=== PATIENT | female | born 1950 | race Caucasian/White ===

== ENCOUNTER 2019-11-21 12:46 | Emergency (ER) | payer MEDICARE, OTHER ==
[2019-11-21 13:32] LABS: #Basophils 0.1 thou/uL (0.0-0.2); #Eosinphils 0.1 thou/uL (0.0-0.7); #Lymphocytes 2.1 thou/uL (1.20-3.40); #Monocytes 0.4 thou/uL (0.11-0.59); #Neutrophils 6.4 thou/uL (1.40-6.50); %Basophils 1.3 % (0.0-1.0); %Lymphocytes 23.4 % (21.0-51.0); %Monocytes 4.5 % (0.0-10.0); %Neutrophils 69.9 % (42.0-75.0); Mean Corpuscular HGB CONC 32.5 g/dL (32.0-36.0); Mean Corpuscular Hemoglobin 29.5 pg (27.0-31.0); Mean Corpuscular Volume 90.6 fL (78.0-98.0); Mean Platelet Volume 9.8 fL (7.4-10.4); Platelet Count 150 thou/uL (130-400); RBC Distribution Width 11.8 % (11.5-14.5); Red Blood Cell (RBC) Count 4.77 mill/uL (4.20-5.40); White Blood Cell (WBC) Count 9.2 thou/uL (4.8-10.8)
[2019-11-21] MEDS ORDERED: methylPREDNISolone Sod Succ/PF 125 MG/2 ML VIAL ONE (13:35)
[2019-11-21] MEDS ORDERED: Ventolin HFA Inhaler 60 PUFF INHALER ONE (13:35)
[2019-11-21 13:41] LABS: ALT (SGPT) 21 U/L (8-55); AST (SGOT) 24 U/L (5-34); Albumin 4.4 g/dL (3.4-4.8); Alkaline Phosphatase 90 U/L (40-110); Anion Gap 19 mmol/L (10-20); BUN (Urea Nitrogen) 7 mg/dL (9.8-20.1); Bilirubin, Total 0.5 mg/dL (0.2-1.2); Calc. Creatinine Clearance 0 mL/min (70-130); Calcium 10.1 mg/dL (7.8-10.44); Carbon Dioxide 17 mmol/L (23-31); Chloride 105 mmol/L (98-107); Estimated GFR-MDRD 65; Globulin 3.6 g/dL (2.4-3.5); Glucose 134 mg/dL (80-115); Potassium 4.1 mmol/L (3.5-5.1); Sodium 137 mmol/L (136-145)
--- NOTE | 2019-11-21 13:51 | RAD ---
EXAM: Single view of the chest HISTORY: Chest pain COMPARISON: 02/03/2014 FINDINGS: Single view of the chest shows a normal sized cardiomediastinal silhouette. Atheroscleroti c calcifications are seen in the aorta. There is a stable nodule projecting over the right upper lobe. The bones are unremarkable IMPRESSION: No evidence of acute cardiopulmonary disease
== END 2019-11-21 15:25 | disposition home or self-care (01) ==
LOC: NAV ERS 12:46
DX: J20.9 Acute bronchitis, unspecified (principal); F41.9 Anxiety disorder, unspecified; I10 Essential (primary) hypertension; F43.10 Post-traumatic stress disorder, unspecified; F17.210 Nicotine dependence, cigarettes, uncomplicated; Z79.899 Other long term (current) drug therapy
CPT/HCPCS: 71045; 80053; 83605; 84484; 85025; 93005; 96374; J2930

== ENCOUNTER 2019-11-26 06:30 | Emergency (ER) | payer MEDICARE, OTHER ==
[2019-11-26 06:52] LABS: #Basophils 0.2 thou/uL (0.0-0.2); #Eosinphils 0.1 thou/uL (0.0-0.7); #Monocytes 0.6 thou/uL (0.11-0.59); #Neutrophils 6.9 thou/uL (1.40-6.50); %Basophils 1.5 % (0.0-1.0); %Eosinophils 0.9 % (0.0-10.0); %Lymphocytes 28.2 % (21.0-51.0); %Monocytes 5.5 % (0.0-10.0); %Neutrophils 63.9 % (42.0-75.0); Hemoglobin 13.6 g/dL (12.0-16.0); Mean Corpuscular HGB CONC 32.7 g/dL (32.0-36.0); Mean Corpuscular Hemoglobin 29.1 pg (27.0-31.0); Mean Corpuscular Volume 88.8 fL (78.0-98.0); Mean Platelet Volume 10.9 fL (7.4-10.4); Platelet Count 196 thou/uL (130-400); RBC Distribution Width 11.3 % (11.5-14.5); Red Blood Cell (RBC) Count 4.67 mill/uL (4.20-5.40); White Blood Cell (WBC) Count 10.8 thou/uL (4.8-10.8)
[2019-11-26 07:08] LABS: ALT (SGPT) 16 U/L (8-55); AST (SGOT) 24 U/L (5-34); Albumin 4.1 g/dL (3.4-4.8); Alkaline Phosphatase 72 U/L (40-110); Anion Gap 14 mmol/L (10-20); BUN (Urea Nitrogen) 7 mg/dL (9.8-20.1); Bilirubin, Total 0.5 mg/dL (0.2-1.2); CK (CPK) 151 U/L (29-168); Calc. Creatinine Clearance 0 mL/min (70-130); Calcium 9.4 mg/dL (7.8-10.44); Carbon Dioxide 23 mmol/L (23-31); Chloride 103 mmol/L (98-107); Estimated GFR-MDRD 61; Globulin 3.1 g/dL (2.4-3.5); Glucose 126 mg/dL (80-115); Lipase 12 U/L (8-78); Potassium 3.4 mmol/L (3.5-5.1); Protein, Total 7.2 g/dL (6.0-8.3); Sodium 137 mmol/L (136-145)
--- NOTE | 2019-11-26 07:29 | RAD ---
Chest one view HISTORY: Dyspnea. Chest pain. FINDINGS: Cardiac silhouette and pulmonary vasculature are unremarkable. Mediastinum is midline with aortic calcification. Well-circumscribed nodule in the right upper lobe is again demonstrated, not significantly changed on exams dating back to a PET from 2011. No confluent airspace consolidation or evidence of pneumothorax. There are degenerative changes of th e shoulders. quality assurance intern leads overlie the chest. IMPRESSION : Chronic-type findings are stable. No active cardiopulmonary abnormalities are demonstrated.
== END 2019-11-26 08:00 | disposition home or self-care (01) ==
LOC: NAV ERS 06:30
DX: J44.9 Chronic obstructive pulmonary disease, unspecified (principal); R07.89 Other chest pain; I10 Essential (primary) hypertension; F43.10 Post-traumatic stress disorder, unspecified; F17.210 Nicotine dependence, cigarettes, uncomplicated; Z79.899 Other long term (current) drug therapy
CPT/HCPCS: 71045; 80053; 82550; 83690; 84484; 85025; 93005

== ENCOUNTER 2021-07-01 17:10 | Emergency (ER) | payer MEDICARE, MEDICAID | END 2021-07-01 21:14 | disposition short-term general hospital (02) | LOC: NAV ERS 17:10 | DX: E87.6 Hypokalemia (principal); E86.0 Dehydration; R19.7 Diarrhea, unspecified; I10 Essential (primary) hypertension; F17.210 Nicotine dependence, cigarettes, uncomplicated; Z20.822 Contact with and (suspected) exposure to COVID-19; Z85.42 Personal history of malignant neoplasm of other parts of uterus; Z85.038 Personal history of other malignant neoplasm of large intestine; Z79.899 Other long term (current) drug therapy | CPT/HCPCS: 71045; 80053; 81003; 81015; 83605; 83880; 85025; 93005; 96365; 96366; J3480; J7050; U0002 ==

== ENCOUNTER 2023-04-21 16:28 | Emergency (ER) | payer OTHER ==
[2023-04-21] MEDS ORDERED: fentaNYL 50 mcg/mL 1 mL Vial ONE ×2 (16:54→20:33)
[2023-04-21 16:57] LABS: #Basophils 0.1 thou/uL (0.0-0.2); #Eosinphils 0.1 thou/uL (0.0-0.7); #Lymphocytes 2.2 thou/uL (1.20-3.40); #Monocytes 0.7 thou/uL (0.11-0.59); #Neutrophils 6.8 thou/uL (1.40-6.50); %Basophils 0.8 % (0.0-1.0); %Lymphocytes 22.3 % (21.0-51.0); %Monocytes 6.7 % (0.0-10.0); %Neutrophils 69.2 % (42.0-75.0); Hematocrit 41.5 % (36.0-47.0); Hemoglobin 13.7 g/dL (12.0-16.0); Mean Corpuscular Hemoglobin 31.2 pg (27.0-31.0); Mean Corpuscular Volume 94.4 fl (78.0-98.0); Mean Platelet Volume 9.4 fL (7.4-10.4); Platelet Count 167 10x3/uL (130-400); RBC Distribution Width 11.5 % (11.5-14.5); White Blood Cell (WBC) Count 9.7 10x3/uL (4.8-10.8)
[2023-04-21 17:06] LABS: Prothrombin Time 13.9 sec (12.0-14.7)
[2023-04-21 17:07] LABS: PTT 26.8 sec (22.9-36.1)
[2023-04-21 17:14] LABS: ALT (SGPT) 10 U/L (8-55); AST (SGOT) 15 U/L (5-34); Albumin 4.1 g/dL (3.4-4.8); Alkaline Phosphatase 69 U/L (40-110); Anion Gap 12 mmol/L (10-20); BUN (Urea Nitrogen) 10 mg/dL (9.8-20.1); Bilirubin, Total 0.4 mg/dL (0.2-1.2); Calc. Creatinine Clearance 0 mL/min (70-130); Calcium 10.2 mg/dL (7.8-10.44); Carbon Dioxide 26 mmol/L (23-31); Chloride 105 mmol/L (98-107); Estimated GFR 73; Globulin 3.1 g/dL (2.4-3.5); Glucose 97 mg/dL (83-110); Magnesium 1.6 mg/dL (1.6-2.6); Potassium 3.6 mmol/L (3.5-5.1); Protein, Total 7.2 g/dL (5.8-8.1); Sodium 139 mmol/L (136-145)
[2023-04-21 17:15] LABS: Troponin I Less than 0.010 ng/mL (< 0.028)
[2023-04-21] MEDS ORDERED: Mag-Al Plus 1200/1200/120 MG (30 mL) UDCUP ONE (19:00)
[2023-04-21] MEDS ORDERED: Lidocaine 2% Viscous 100 ML BOTTLE ONE (19:00)
[2023-04-21] MEDS ORDERED: Ipratropium/Albuterol 3 ML NEB ONE (20:33)
[2023-04-21 20:58] LABS: Troponin I Less than 0.010 ng/mL (< 0.028)
[2023-04-21 21:09] LABS: Bacteria/HPF 2+ HPF (None Seen); Bilirubin Negative (Negative); Blood, Urine Small (Negative); CAUTI Indications for Culture Alt mental st,lethar; Calcium Oxalate Crystals 2+ HPF (None Seen); Clarity Clear (Clear); Glucose, Urine (Dipstick) Negative (Negative); Ketone, Urine Negative (Negative); Leukocyte Trace (Negative); Nitrite Positive (Negative); Protein, Urine (Dipstick) 30 mg/dL (Neg-Trace); RBC/HPF None Seen HPF (0-3); Specific Gravity, Urine 1.026 (1.002-1.036); Squamous Epithelial 0-3 HPF (0-3); Urobilinogen 0.2 mg/dL (Less than 2)
[2023-04-21 21:10] LABS: Urine Culture Reflex No No
[2023-04-21] MEDS ORDERED: cefTRIAXone (ROCEPHIN) 1 GM VIAL ONE (22:09)
[2023-04-21] MEDS ORDERED: diphenhydrAMINE 50 MG/ML VIAL ONE (22:09)
[2023-04-21] MEDS ORDERED: diphenhydrAMINE 25 MG CAP ONE (22:09)
[2023-04-22] MEDS ORDERED: fentaNYL 50 mcg/mL 1 mL Vial ONE (02:49)
[2023-04-22] MEDS ORDERED: Cyclobenzaprine 10 MG TAB ONE (02:58)
[2023-04-22 03:24] LABS: Troponin I Less than 0.010 ng/mL (< 0.028)
[2023-04-22] MEDS ORDERED: Losartan 50 MG TAB ONE (08:15)
[2023-04-22] MEDS ORDERED: Iopamidol 370 76% 100 ML VIAL ONE ×2 (09:00)
== END 2023-04-22 15:55 | disposition home or self-care (01) ==
LOC: NAV ERS 16:28
DX: J44.9 Chronic obstructive pulmonary disease, unspecified (principal); K57.10 Diverticulosis of small intestine without perforation or abscess without bleeding; N39.0 Urinary tract infection, site not specified; R07.9 Chest pain, unspecified; F17.210 Nicotine dependence, cigarettes, uncomplicated; I10 Essential (primary) hypertension
CPT/HCPCS: 36415; 71045; 74177; 80053; 81001; 83735; 83880; 84484; 85025; 85610; 85730; 87077; 87086; 87186; 93005; 94760; 96374; 96375; 96376; J0696; J1200; J3010; J7620; Q9967

== ENCOUNTER 2023-10-20 11:45 | Emergency (ER) | payer MEDICARE ==
[2023-10-20] MEDS ORDERED: methylPREDNISolone Sod Succ/PF 125 MG/2 ML VIAL ONE (12:16)
[2023-10-20] MEDS ORDERED: Ipratropium/Albuterol 3 ML NEB ONE (12:16)
[2023-10-20] MEDS ORDERED: clonazePAM 0.5 MG TAB ONE (12:33)
[2023-10-20 12:35] LABS: #Basophils 0.1 thou/uL (0.0-0.2); #Lymphocytes 1.3 thou/uL (1.20-3.40); #Monocytes 0.8 thou/uL (0.11-0.59); #Neutrophils 7.1 thou/uL (1.40-6.50); %Basophils 0.8 % (0.0-1.0); %Eosinophils 0.2 % (0.0-10.0); %Lymphocytes 14.2 % (21.0-51.0); %Monocytes 8.6 % (0.0-10.0); %Neutrophils 76.3 % (42.0-75.0); Hematocrit 44.4 % (36.0-47.0); Hemoglobin 14.1 g/dL (12.0-16.0); Mean Corpuscular HGB CONC 31.8 g/dL (32.0-36.0); Mean Corpuscular Hemoglobin 28.2 pg (27.0-31.0); Mean Corpuscular Volume 88.8 fl (78.0-98.0); Mean Platelet Volume 7.9 fL (7.4-10.4); Platelet Count 185 10x3/uL (130-400); RBC Distribution Width 11.7 % (11.5-14.5); White Blood Cell (WBC) Count 9.3 10x3/uL (4.8-10.8)
[2023-10-20 12:53] LABS: ALT (SGPT) 12 U/L (8-55); AST (SGOT) 16 U/L (5-34); Albumin 3.9 g/dL (3.4-4.8); Alkaline Phosphatase 91 U/L (40-110); Anion Gap 15 mmol/L (10-20); BUN (Urea Nitrogen) 11 mg/dL (9.8-20.1); Bilirubin, Total 0.5 mg/dL (0.2-1.2); Calc. Creatinine Clearance 0 mL/min (70-130); Calcium 10.2 mg/dL (7.8-10.44); Carbon Dioxide 23 mmol/L (23-31); Chloride 103 mmol/L (98-107); Estimated GFR 68; Globulin 3.6 g/dL (2.4-3.5); Glucose 102 mg/dL (83-110); Lipase 9 U/L (8-78); Magnesium 1.7 mg/dL (1.6-2.6); Potassium 3.5 mmol/L (3.5-5.1); Protein, Total 7.5 g/dL (5.8-8.1); Sodium 137 mmol/L (136-145); Troponin I Less than 0.010 ng/mL (< 0.028)
[2023-10-20] MEDS ORDERED: tiZANidine HCl 4 MG TAB ONE (13:32)
[2023-10-20] MEDS ORDERED: LevoFLOXacin 500 MG TAB ONE (14:34)
== END 2023-10-20 15:50 | disposition short-term general hospital (02) ==
LOC: NAV ERS 11:45
DX: J44.1 Chronic obstructive pulmonary disease with (acute) exacerbation (principal); J96.01 Acute respiratory failure with hypoxia; J18.9 Pneumonia, unspecified organism; I10 Essential (primary) hypertension; F17.210 Nicotine dependence, cigarettes, uncomplicated; Z79.899 Other long term (current) drug therapy
CPT/HCPCS: 36415; 71045; 71275; 80053; 83690; 83735; 83880; 84484; 85025; 93005; 94760; 96374; J2930; J7620

== ENCOUNTER 2023-11-03 11:08 | Emergency (ER) | payer MEDICARE ==
[2023-11-03] MEDS ORDERED: Ipratropium/Albuterol 3 ML NEB ONE (11:34)
[2023-11-03] MEDS ORDERED: traMADol HCl 50 MG TAB ONE (11:34)
[2023-11-03 13:10] LABS: ALT (SGPT) 37 U/L (8-55); AST (SGOT) 21 U/L (5-34); Albumin 3.2 g/dL (3.4-4.8); Alkaline Phosphatase 65 U/L (40-110); Anion Gap 13 mmol/L (10-20); BUN (Urea Nitrogen) 21 mg/dL (9.8-20.1); Bilirubin, Total 0.3 mg/dL (0.2-1.2); Calc. Creatinine Clearance 0 mL/min (70-130); Calcium 8.9 mg/dL (7.8-10.44); Carbon Dioxide 24 mmol/L (23-31); Chloride 105 mmol/L (98-107); Estimated GFR 54; Globulin 2.9 g/dL (2.4-3.5); Glucose 138 mg/dL (83-110); Potassium 4.5 mmol/L (3.5-5.1); Protein, Total 6.1 g/dL (5.8-8.1); Sodium 137 mmol/L (136-145); Troponin I 0.023 ng/mL (< 0.028)
[2023-11-03 13:22] LABS: Hematocrit 43.9 % (36.0-47.0); Hemoglobin 13.7 g/dL (12.0-16.0); Mean Corpuscular HGB CONC 31.2 g/dL (32.0-36.0); Mean Corpuscular Hemoglobin 28.1 pg (27.0-31.0); Mean Corpuscular Volume 90.2 fl (78.0-98.0); Mean Platelet Volume 6.5 fL (7.4-10.4); Platelet Count 274 10x3/uL (130-400); RBC Distribution Width 12.7 % (11.5-14.5); Red Blood Cell (RBC) Count 4.87 mill/uL (4.20-5.40); White Blood Cell (WBC) Count 22.6 10x3/uL (4.8-10.8)
[2023-11-03 13:23] LABS: Band 4 % (5-11); Lymphocytes 9 % (21-51); MDiff Complete? YES; Monocytes 4 % (0-10); Neutrophil 83 % (42-75); Platelet Adequacy Comment Appears Adequate
== END 2023-11-03 15:05 | disposition home or self-care (01) ==
LOC: NAV ERS 11:08
DX: R07.89 Other chest pain (principal); F41.9 Anxiety disorder, unspecified; J44.9 Chronic obstructive pulmonary disease, unspecified; F17.210 Nicotine dependence, cigarettes, uncomplicated; I10 Essential (primary) hypertension; Z79.899 Other long term (current) drug therapy
CPT/HCPCS: 71045; 80053; 84484; 85025; 93005; J7620

== ENCOUNTER 2024-06-12 15:13 | Emergency (ER) | payer MEDICARE, OTHER ==
[2024-06-12] MEDS ORDERED: fentaNYL 50 mcg/mL 1 mL Vial ONE ×2 (15:39→16:36)
[2024-06-12 15:59] LABS: #Basophils 0.1 thou/uL (0.0-0.2); #Lymphocytes 1.7 thou/uL (1.20-3.40); #Monocytes 0.8 thou/uL (0.11-0.59); #Neutrophils 9.6 thou/uL (1.40-6.50); %Basophils 0.8 % (0.0-1.0); %Eosinophils 0.1 % (0.0-10.0); %Lymphocytes 14.1 % (21.0-51.0); %Monocytes 6.4 % (0.0-10.0); %Neutrophils 78.4 % (42.0-75.0); Hematocrit 39.6 % (36.0-47.0); Hemoglobin 13.1 g/dL (12.0-16.0); Mean Corpuscular HGB CONC 33.2 g/dL (32.0-36.0); Mean Corpuscular Hemoglobin 29.1 pg (27.0-31.0); Mean Corpuscular Volume 87.7 fl (78.0-98.0); Mean Platelet Volume 7.6 fL (7.4-10.4); Platelet Count 296 10x3/uL (130-400); RBC Distribution Width 12.2 % (11.5-14.5); Red Blood Cell (RBC) Count 4.52 mill/uL (4.20-5.40); White Blood Cell (WBC) Count 12.2 10x3/uL (4.8-10.8)
[2024-06-12 16:13] LABS: ALT (SGPT) 30 U/L (Less than 34); AST (SGOT) 36 U/L (11-34); Albumin 3.5 g/dL (3.1-4.5); Alkaline Phosphatase 73 U/L (40-110); Anion Gap 16 mmol/L (10-20); BUN (Urea Nitrogen) 16 mg/dL (9.8-20.1); Bilirubin, Total 0.7 mg/dL (0.3-1.2); Calc. Creatinine Clearance 0 mL/min (70-130); Calcium 10.1 mg/dL (7.8-10.44); Carbon Dioxide 21 mmol/L (23-31); Chloride 99 mmol/L (98-107); Estimated GFR 55; Globulin 3.4 g/dL (2.4-3.5); Glucose 111 mg/dL (83-110); Protein, Total 6.9 g/dL (5.8-8.1); Sodium 132 mmol/L (136-145)
[2024-06-12 16:23] LABS: Troponin I Less than 0.010 ng/mL (< 0.028)
[2024-06-12 18:13] LABS: Troponin I Less than 0.010 ng/mL (< 0.028)
== END 2024-06-12 19:06 | disposition home or self-care (01) ==
LOC: NAV ERS 15:13
DX: R07.89 Other chest pain (principal); I10 Essential (primary) hypertension; J44.9 Chronic obstructive pulmonary disease, unspecified; F17.210 Nicotine dependence, cigarettes, uncomplicated; Z55.6 Problems related to health literacy
CPT/HCPCS: 71045; 71275; 80053; 83880; 84484 ×2; 85025; 85379; 93005; J3010; 96374; 96376